=== PATIENT | female | born 1980 | race American Indian/Alaskan Native ===

== ENCOUNTER 2021-06-30 19:08 | Emergency (ER) | payer SELFPAY ==
[2021-06-30 20:46] VITALS: BP 124/66
--- NOTE | 2021-06-30 22:40 | Emergency Department Report ---
ED Abdominal Pain HPI - General Chief Complaint: Abdominal Pain Stated Complaint: KIDNEY,AND HEAD PAIN Time Seen by Provider: 06/30/21 22:17 Source: patient Mode of arrival: Ambulatory Limitations: No Limitations - History of Present Illness MD Complaint: abdominal pain - Related Data Previous Rx's Medication Instructions Recorded Last Taken Type Dicyclomine [Bentyl] 20 mg PO QID PRN #20 tablet 07/01/21 Unknown Rx Potassium Chloride [K-Dur] 20 meq PO QDAY #1 tablet 07/01/21 Unknown Rx Allergies Allergy/AdvReac Type Severity Reaction Status Date / Time No Known Allergies Allergy Verified 06/30/21 23:53 ED Review of Systems ROS: Stated complaint: KIDNEY,AND HEAD PAIN Other details as noted in HPI Comment: All other systems reviewed and negative ED Past Medical Hx - Past Medical History Previous Medical History?: No - Surgical History Past Surgical History?: No - Medications Home Medications: Home Medications Medication Instructions Recorded Confirmed Last Taken Type Dicyclomine [Bentyl] 20 mg PO QID PRN #20 tablet 07/01/21 Unknown Rx Potassium Chloride [K-Dur] 20 meq PO QDAY #1 tablet 07/01/21 Unknown Rx ED Physical Exam - General Limitations: No Limitations General appearance: alert, in no apparent distress - Head Head exam: Present: atraumatic, normocephalic - Eye Eye exam: Present: normal appearance - ENT ENT exam: Present: normal exam, normal orophraynx, mucous membranes moist, TM's normal bilaterally - Neck Neck exam: Present: normal inspection, full ROM - Respiratory Respiratory exam: Present: normal lung sounds bilaterally. Absent: respiratory distress - Cardiovascular Cardiovascular Exam: Present: regular rate, normal rhythm. Absent: systolic murmur, diastolic murmur, rubs, gallop - GI/Abdominal GI/Abdominal exam: Present: soft, normal bowel sounds - Extremities Exam Extremities exam: Present: normal inspection - Back Exam Back exam: Present: normal inspection - Neurological Exam Neurological exam: Present: alert, oriented X3 - Psychiatric Psychiatric exam: Present: normal affect, normal mood - Skin Skin exam: Present: warm, dry, intact, normal color. Absent: rash ED Course Vital Signs 06/30/21 06/30/21 20:43 20:44 Temperature 98.6 F Pulse Rate 60 Respiratory 17 Rate Blood Pressure 124/66 O2 Sat by Pulse 99 Oximetry ED Medical Decision Making - Lab Data Result diagrams: 06/30/21 22:44 06/30/21 22:44 - Medical Decision Making This patient presents with abdominal pain of unclear etiology. Their evaluation has not identified a emergent etiology for the abdominal pain. Specifically, given the very benign exam, normal laboratory studies, and lack of significant risk factors, I have a very low suspicion for appendicitis, ischemic bowel, bowel perforation, or any other life threatening disease. I have discussed with the patient the level of uncertainty with undifferentiated abdominal pain and clearly explained the need to follow-up as noted on the discharge instructions, or return to the Emergency Department immediately if the pain worsens, develops fever, persistent and uncontrollable vomiting, or for any new symptoms or concerns. I discussed with the patient that this presentation today for abdominal pain could represent a significant risk for an acute abdominal process. Although the tests in the ED were essentially normal, there is still a possibility of a process such as appendicitis, diverticulitis, cholecystitis, ulcer, early bowel obstruction, mesenteric ischemia, kidney stone, or even kidney infection which could subsequently cause disability or . The patient understands that they must return within 24 hours for a recheck or see their physician within 24 hours for re-exam due to the possibility of significant surgical or medical process. Critical care attestation.: If time is entered above; I have spent that time in minutes in the direct care of this critically ill patient, excluding procedure time. ED Disposition Clinical Impression: Abdominal pain, URI (upper respiratory infection), Hypokalemia Disposition: 01 HOME / SELF CARE / HOMELESS Condition: Stable Instructions: Cool Mist Vaporizer, Abdominal Pain, Adult, Hypokalemia, Upper Respiratory Infection, Adult, Eyur-in-Bjkg, Cough, Adult, Abdominal Pain (ED) Additional Instructions: You have been evaluated emergency department today for abdominal pain. Your evaluation did not show evidence of any medical conditions requiring emergent intervention at this time. Your lipase was it was elevated but not to a significant degree significant pancreatitis does not appear to be present at th is time please drink plenty of fluids. Please schedule an appointment with your primary care physician. Return to emergency department if you experience worsening uncontrolled pain, fevers of 100.4 or greater, recurrent vomiting, inability to tolerate food or fluids by mouth, bloody stools or vomit, black tarry stools, or any other concerning symptoms. Prescriptions: Dicyclomine [Bentyl] 20 mg PO QID PRN #20 tablet PRN Reason: abdominal pain or cramping Potassium Chloride [K-Dur] 20 meq PO QDAY #1 tablet Referrals: MALDONADO MCLEOD MD [Staff Physician] - 3-5 Days PRIMARY CARE, [Primary Care Provider] - 3-5 Days
[2021-06-30 23:06] LABS: Bacteria,Urine 1+ /HPF (Negative); Bilirubin,Urine NEG (Negative); Blood,Urine NEG (Negative); Color,Urine Yellow (Yellow); Mucus,Urine 1+ /HPF; Protein,Urine <15 mg/dL mg/dL (Negative); Urobilinogen,Urine < 2.0 mg/dL (<2.0)
[2021-06-30 23:07] LABS: HCG Qualitative,Urine Negative (Negative)
[2021-06-30 23:16] LABS: Hematocrit 37.1 % (30.3-42.9); Hemoglobin 12.3 gm/dl (10.1-14.3); Mean Corpuscular HGB Conc 33 % (30-34); Mean Corpuscular Volume 91 fl (79-97); Platelet Count 277 K/mm3 (140-440); Red Blood Count 4.07 M/mm3 (3.65-5.03); Red Cell Distribution Width 13.3 % (13.2-15.2)
--- NOTE | 2021-06-30 23:42 | XRay Report ---
CHEST 2 VIEWS INDICATION / CLINICAL INFORMATION: cough. COMPARISON: None available. FINDINGS: SUPPORT DEVICES: None. HEART / MEDIASTINUM: No significant abnormality. LUNGS / PLEURA: No significant pulmonary abnormality. No significant pleural effusion. No pneumothora x. ADDITIONAL FINDINGS: No significant additional findings. IMPRESSION: 1. No acute abnormality of the chest. Signer Name: Jamel Stanley MD Signed: 06/30/2021 11:37 PM Workstation Name: [id number]
[2021-06-30 23:56] LABS: Alanine Aminotransferase 10 units/L (7-56); Albumin 4.2 g/dL (3.9-5); Blood Urea Nitrogen 8 mg/dL (7-17); Calcium 9.1 mg/dL (8.4-10.2); Hemolysis Index 7
[2021-06-30] MEDS ORDERED: ACETAMINOPHEN 500 MG TAB PO ONE (23:56)
[2021-06-30 23:58] LABS: BUN/Creatinine Ratio 11
[2021-07-01] MEDS ORDERED: POTASSIUM CHLORIDE ER 20 MEQ TAB PO ONE (01:15)
[2021-07-01 02:26] LABS: Anisocytosis 1+; Total Cells Counted 100
[2021-07-01 02:27] LABS: Platelet Estimate Consistent w Auto
== END 2021-07-01 01:30 | disposition home or self-care (01) ==
LOC: ED 19:08
DX: J06.9 Acute upper respiratory infection, unspecified (principal); E87.6 Hypokalemia; R10.9 Unspecified abdominal pain; R51.9 Headache, unspecified; Z79.899 Other long term (current) drug therapy
CPT/HCPCS: 36415; 71046; 80053; 81001; 81025; 83690; 85007; 85025; 99284